=== PATIENT | male | born 1945 | race Caucasian/White ===

== ENCOUNTER 2024-03-26 09:53 | Emergency (ER) | payer MEDICARE, BC, SELFPAY ==
[2024-03-26 09:53] VITALS: BMI 27.6
[2024-03-26 09:55] VITALS: BP 157/78
[2024-03-26 10:24] LABS: % Basophils 0.8 % (0-2); % Eosinophils 3.4 % (0-6); % Immature Granulocytes 0.3 % (0-0.5); % Lymphocytes 14.3 % (20.5-51.1); % Monocytes 7.7 % (1.7-9.3); % Neutrophils 73.5 % (42.2-75.2); Absolute Basophils 0.1 10^3/uL (0-0.2); Absolute Eosinophils 0.3 10^3/uL (0-0.7); Absolute Lymphocytes 1.3 10^3/uL (1.2-3.4); Absolute Monocytes 0.7 10^3/uL (0.1-0.6); Absolute Neutrophils 6.5 10^3/uL (1.4-6.5); Hematocrit 31.9 % (39.0-52.0); Hemoglobin 10.6 g/dL (13.0-18.0); Mean Corp Hgb Conc. 33.2 g/dL (33.0-37.0); Mean Corpuscular Hgb 28.5 pg (27.0-31.0); Mean Corpuscular Volume 85.8 fL (80.0-94.0); Mean Platelet Volume 9.8 fL (7.4-10.4); Nucleated Red Blood Cells % 0 % (-); Platelet Count 213 10^3/uL (130-400); Red Blood Cell Count 3.72 10^6/uL (4.70-6.10); Red Cell Dist. Width 17.7 % (11.5-14.5); White Blood Cell Count 8.8 10^3/uL (4.8-10.8)
[2024-03-26 10:35] LABS: COVID-19 Antigen Negative (Negative)
[2024-03-26 10:43] LABS: ALT (SGPT) 26 U/L (0-50); AST (SGOT) 27 U/L (17-59); Albumin 3.5 g/dl (3.5-5.0); Alkaline Phosphatase 116 U/L (38-126); Blood Urea Nitrogen 21 mg/dl (9-20); Calcium 8.7 mg/dl (8.4-10.2); Carbon Dioxide 30 mmol/L (22-30); Chloride 102 mmol/L (98-107); Estimated Creatinine Clearance 69 ml/min; Glucose 109 mg/dl (70-99); Potassium 3.9 mmol/L (3.5-5.1); Sodium 141 mmol/L (135-145); Total Bilirubin 0.9 mg/dl (0.2-1.3); Total Protein 6.2 g/dl (6.3-8.2); eGFR > 60.00
--- NOTE | 2024-03-26 10:49 | ED.GENMED ---
History of Present Illness
General
Chief Complaint: Weakness
Source: patient and other (Nursing staff at [facility])
Exam Limitations: none
Time Seen by Provider: 03/26/24 10:05
Nursing documentation reviewed up to this point in time: agreed with
History of Present Illness
History of Present Illness:
The patient is a 78-year-old man with a past medical history of dementia who arrives from [facility] for mental status change that the nursing staff observed last night. The patient arrives without complaints other than chronic neck
pain, stating that he is not sure why he is here. The patient denies chest pain, cough, shortness of breath, abdominal pain, nausea, vomiting and diarrhea. Patient reports he feels fine. According to the patient and nursing staff at [facility],
the patient was recently admitted and discharged from [facility] for a fall, pneumonia, and sepsis. Patient reports that ever since he had the fall, he has neck pain from time to time. He denies weakness and numbness of the legs and arms.
[facility] reports that last night the patient seemed more confused, agitated and urinated in his bed which they felt is unusual for him and they wanted him evaluated for possible infection. However, they report patient has had no fever or vomiting.
Past History
Past History
ED Past Medical History: CAD, HTN, Hypercholesterolemia and Other (Dementia)
ED Past Surgical History: Other
Social History
Tobacco: Non-smoker
Alcohol: None
Drug: None
Personal: Single
Living: half-way
Employment: Retired
Family History
Family History: Other
Review of Systems
Review of Systems
Allergies reviewed?: Yes
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
All Other Systems: ROS reviewed and negative except as documented in HPI and ROS
Constitutional: Reports no symptoms
EENT: Reports no symptoms
Respiratory: Reports no symptoms
Cardiac: Reports no symptoms
ABD/GI: Reports no symptoms
: Reports no symptoms
Musculoskeletal: Reports neck pain
Skin: Reports no symptoms
Neurological: Reports no symptoms
Endocrine: Reports no symptoms
Hematologic/Lymphatic: Reports no symptoms
Psychiatric: Reports no symptoms
Phy Exam
Physical Exam
Physical Exam:
Physical Exam
General: no apparent distress, not acutely ill, conversational, appears well and comfortable
Neck: supple. no meningeal signs. normal psoterior pharynx. No vertebral spine tenderness. Mild bilateral para cervical soft tissue muscle tenderness
Heart: s1/s2 regular rate and rhythm
Lungs: no acute respiratory distress. clear bilaterally. No cough, breathing comfortably
Abdomen: normal bowel sounds. not tender. no CVAT
Neuro: alert and orientedx3. no focal neurological deficits. Answers all questions appropriately. Is alert and oriented to self, place and year
Skin: no rash
Psychiatric: well kept. interactive and cooperative
Extremities: no edema. no calf tenderness. negative homans. good distal pulses
Course
Orders/Labs/Results
Orders:
Orders
03/26/24 10:12
Comprehensive Metabolic Panel Urgent
03/26/24 10:13
COVID-19 Antigen Urgent
Source: Nasal Swab
Complete Blood Count/With Diff Urgent
Influenza A+B Rapid Molecular Urgent
RADHA Source: Nasal Swab
Specimen Description:
03/26/24 11:03
Acetaminophen [Tylenol] 1,000 mg PO NOW STA
03/26/24 15:43
Urinalysis Reflex To Culture Urgent
Date Specimen was Collected: 03/26/24
Time Specimen was Collected: 12:17
Abnormal Lab Results
03/26/24 03/26/24
10:12 10:13
RBC 3.72 L 10^6/uL
(4.70-6.10)
Hgb 10.6 L g/dL
(13.0-18.0)
Hct 31.9 L %
(39.0-52.0)
RDW 17.7 H %
(11.5-14.5)
Absolute Monos (auto) 0.7 H 10^3/uL
(0.1-0.6)
Lymphocytes % 14.3 L %
(20.5-51.1)
BUN 21 H mg/dl
(9-20)
Glucose 109 H mg/dl
(70-99)
Total Protein 6.2 L g/dl
(6.3-8.2)
03/26/24 10:13
03/26/24 10:12
Vital Signs
Initial and Last Documented VS:
Initial Vital Signs
Temp Pulse Resp BP Pulse Ox
98.4 F 84 20 157/78 96
03/26/24 09:55 03/26/24 09:55 03/26/24 09:55 03/26/24 09:55 03/26/24 09:55
Last Documented Vital Signs
Temp Pulse Resp BP Pulse Ox
98.4 F 67 17 155/70 92
03/26/24 09:55 03/26/24 13:45 03/26/24 13:59 03/26/24 13:00 03/26/24 13:45
MDM/Problems Addressed
Differential Diagnosis Includes:
Acute exacerbation of dementia, UTI, pneumonia, hyponatremia
MDM/Problems Addressed:
Patient sent for mental status change that occurred yesterday
Chronic conditions affecting care:
Dementia
Acute Exacerbation and/or Progression of Chronic Illness:
Patient may have had acute agitation related to his chronic dementia last night that is now resolved
*Pulse Oximetry
Patient hypoxic: no
*EKG
Interpreted by ED Provider?: NA
*Rn Placement Interpretation
Rate: normal
Interpretation: normal
Rhythm: sinus
*Critical Care Note
Total Time (30-74mins, 75-104mins- exclusive of procedures): Not Applicable
Patient Management
Escalation/DeEscalation of care consider admission/obs:
Patient remains afebrile and well and comfortable appearing his lungs are clear and there was no clinical sign of pneumonia. His urine shows no sign of UTI. Patient has been calm, cooperative and alert and oriented x 3.
ED Attending Note
-
Portions of this chart may have been created with voice recognition software.� Occasional wrong word or��sound alike� substitutions may have occurred due to the inherent limitations of voice recognition software.
Discharge Plan
Departure
Patient Disposition: Home (Routine Discharge)
Date of Disposition: 03/26/24
Time of Disposition: 16:02
Patient with high blood pressure during this ER visit?: Yes
Condition: Good
Covid-19: Negative COVID-19
Discharge Problem:
Acute alteration in mental status
Instructions: Dementia (including Alzheimer disease), BLOOD PRESSURE
Referrals:
Trey Casillas, DO [Family Provider] -
Activity Restrictions/Additional Instructions:
Patient has no fever nor sign of infection, including COVID
Interventions
Interventions:
*Risk Screen - Suicide Last Done: 03/26/24 09:55
*General Assessment Last Done: 03/26/24 09:55
*Neglect/Abuse Screening Last Done: 03/26/24 09:55
*ED COVID-19 Vaccine History Last Done: 03/26/24 10:32
ED- Cardiac Assessment Last Done: 03/26/24 10:32
ED- Neurological Assessment Last Done: 03/26/24 10:32
ED- Pulmonary Assessment Last Done: 03/26/24 10:32
Discharge Date and Time
Print Language: [facility]
[2024-03-26] MEDS: TYLENOL 1000 MG PO (11:28)
[2024-03-26 12:00] VITALS: BP 157/77
[2024-03-26 13:00] VITALS: BP 155/70
[2024-03-26 14:00] VITALS: BP 133/76
[2024-03-26 15:42] VITALS: BP 164/77
[2024-03-26 15:55] LABS: Urine Albumin Negative (Neg - Trace); Urine Bilirubin Negative (Negative); Urine Character Clear (Clear); Urine Color Yellow; Urine Glucose Negative (Negative); Urine Ketone Negative (Negative); Urine Leukocyte Negative (Negative); Urine Nitrite Negative (Negative); Urine Occult Blood Negative (Negative); Urine Urobilinogen 1+ (Neg - 1+)
[2024-03-26 16:00] VITALS: BP 169/63
== END 2024-03-26 18:40 | disposition home or self-care (01) ==
LOC: EMR 09:53
PROVIDERS: EMERGENCY PHYSICIAN Emergency Medicine; FAMILY PHYSICIAN Internal Medicine
DX: R41.82 Altered mental status, unspecified (principal); I10 Essential (primary) hypertension; Z11.52 Encounter for screening for COVID-19; F03.90 Unspecified dementia, unspecified severity, without behavioral disturbance, psychotic disturbance, mood disturbance, and anxiety
CPT/HCPCS: 99283; 80053; 81003; 85025; 87502; 87811